=== PATIENT | male | born 1940 | race Caucasian/White ===

== ENCOUNTER 2017-11-04 08:54 | Emergency (ER) | payer MEDICARE, OTHER ==
[2017-11-04 09:47] VITALS: BP 137/82
--- NOTE | 2017-11-04 10:31 | ED ---
GI/ HPI - HPI Summary HPI Summary: 77 yr old male with the complaint of dysuria, frequency of urination. He has had feeling of some chills as well. The patient has had no abdominal or pelvic pain, no back pain. The patient has complaint two which is right wrist swelling. Onset of swelling over past couple of days. It is associated with symptoms consistent with his prior gout flare ups which he has had in the ankle as well as in the left wrist in the past. 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 he is being followed by his PMD in [place] for the clots and - History of Current Complaint Chief Complaint: [facility] Time Seen by Provider: 11/04/17 09:57 Stated Complaint: URINARY Pain Intensity: 6 - Allergy/Home Medications Allergies/Adverse Reactions: Allergies Allergy/AdvReac Type Severity Reaction Status Date / Time No Known Allergies Allergy Verified 11/04/17 09:41 Home Medications: Home Medications Apixaban* [Eliquis*] 5 mg PO BID 11/04/17 [History Confirmed 11/04/17] Carvedilol TAB* [Coreg TAB*] 12.5 mg PO BID 11/04/17 [History Confirmed 11/04/17 ] Gemfibrozil TAB* [Lopid TAB*] 600 mg PO BID 11/04/17 [History Confirmed ] Hydroxychloroquine TAB* [Plaquenil TAB*] 200 mg PO BID 11/04/17 [History Confirmed 11/04/17] Losartan TAB* [Cozaar TAB*] 50 mg PO BID 11/04/17 [History Confirmed 11/04/17] Naproxen Sodium [Aleve] 220 mg PO BID 11/04/17 [History Confirmed 11/04/17] Tamsulosin CAP* [Flomax CAP*] 0.4 mg PO DAILY 11/04/17 [History Confirmed ] amLODIPine TAB* [Norvasc 5 mg TAB*] 2.5 mg PO DAILY 11/04/17 [History Confirmed 11/04/17] metFORMIN* [Glucophage 1000 MG TAB *] 1,000 mg PO 0800,1700 11/04/17 [History Confirmed 11/04/17] predniSONE TAB* [Deltasone TAB*] 5 mg PO DAILY 11/04/17 [History Confirmed 11/04] PMH/Surg Hx/FS Hx/Imm Hx Endocrine/Hematology History: Reports: Hx Diabetes Cardiovascular History: Reports: Hx Hypertension - Surgical History Surgery Procedure, Year, and Place: L knee replacement x2. R knee replacement. Tumor removal Infectious Disease History: No Infectious Disease History: Reports: Traveled Outside the [place] in Last 30 Days - [place] - Family History Known Family History: Positive: None - Social History Occupation: Works From/At Home Alcohol Use: None Substance Use Type: Reports: None Smoking Status (MU): Never Smoked Tobacco Review of Systems Positive: Chills Positive: dysuria Positive: Other - right wrist swelling All Other Systems Reviewed And Are Negative: Yes Physical Exam Triage Information Reviewed: Yes Vital Signs On Initial Exam: Initial Vitals Temp Pulse Resp BP Pulse Ox 97.3 F 93 17 137/82 98 11/04/17 09:30 11/04/17 09:30 11/04/17 09:30 11/04/17 09:30 11/04/17 09:30 Vital Signs Reviewed: Yes Appearance: Positive: Well-Appearing, No Pain Distress Skin: Positive: Warm, Skin Color Reflects Adequate Perfusion Head/Face: Positive: Normal Head/Face Inspection Eyes: Positive: EOMI ENT: Positive: Normal ENT inspection Neck: Positive: Supple Respiratory/Lung Sounds: Positive: Clear to Auscultation, Breath Sounds Present Cardiovascular: Positive: RRR. Negative: Murmur Abdomen Description: Positive: Nontender Musculoskeletal: Positive: Other - minor STS right wrist with some tenderness, no erythema. Mild increased warmth. Neuro vasc intact. No cellulitis. Neurological: Positive: Sensory/Motor Intact, Alert, Oriented to Person Place, Time, CN Intact II-III Psychiatric: Positive: Normal - Ovando Coma Scale Best Eye Response: 4 - Spontaneous Best Motor Response: 6 - Obeys Commands Best Verbal Response: 5 - Oriented Coma Scale Total: 15 Diagnostics - Vital Signs Vital Signs Temp Pulse Resp BP Pulse Ox 11/04/17 09:30 97.3 F 93 17 137/82 98 - Laboratory Lab Results: Lab Results 11/04/17 Range/Units 10:04 POC Urine Color Brown POC Urine Clarity Cloudy POC Urine pH 5.5 (5-9) POC Ur Specif [place] 1.025 (1.010-1.030) POC Urine Protein 3+ A (Negative) POC Ur Glucose (UA) Negative (Negative) POC Urine Ketones Trace A (Negative) POC Urine Blood 2+ A (Negative) POC Urine Nitrite Positive A (Negative) POC Urine Bilirubin 1+ A (Negative) POC Urine Urobilinogen 1.0 (Negative) POC U Leukocyte Esteras 2+ A (Negative) Lab Statement: Any lab studies that have been ordered have been reviewed, and results considered in the medical decision making process. GIGU Course/Dx - Course Course Of Treatment: 77 yr old with UTI and also gout flare. Keflex and also colchine script. - Diagnoses Provider Diagnoses: Gout, UTI (urinary tract infection) Discharge - Sign-Out/Discharge Documenting (check all that apply): Patient Departure - Discharge Plan Condition: Good Disposition: HOME Prescriptions: Cephalexin CAP* [Keflex CAP*] 500 mg PO TID #30 cap Colchicine* [Colcrys*] 0.6 mg PO BID #10 tab Patient Education Materials: Urinary Tract Infection in Men (ED), Gout (ED), Hypertension (ED) Referrals: No Primary Care Phys,NOPCP [Primary Care Provider] - [facility] [place] [facility] [place] - Billing Disposition and Condition Condition: GOOD Disposition: Home
--- NOTE | 2017-11-06 07:42 | UC ---
- Progress Note Progress Note: + E. Coli On Keflex await sensitivity Lissette 11/06/17 Course/Dx - Diagnoses Provider Diagnoses: Gout, UTI (urinary tract infection) Discharge - Sign-Out/Discharge Documenting (check all that apply): Post-Discharge Follow Up - Discharge Plan Condition: Good Disposition: HOME Prescriptions: Cephalexin CAP* [Keflex CAP*] 500 mg PO TID #30 cap Colchicine* [Colcrys*] 0.6 mg PO BID #10 tab Patient Education Materials: Urinary Tract Infection in Men (ED), Gout (ED), Hypertension (ED) Referrals: [facility] [place] [facility] [Outside] No Primary Care Phys,NOPCP [Primary Care Provider] - - Billing Disposition and Condition Condition: GOOD Disposition: Home
--- NOTE | 2017-11-06 16:23 | UC ---
- Progress Note Progress Note: + E coli sensitive t cephasporin on keflex ljj 11/06/17 Course/Dx - Diagnoses Provider Diagnoses: Gout, UTI (urinary tract infection) Discharge - Sign-Out/Discharge Documenting (check all that apply): Post-Discharge Follow Up - Discharge Plan Condition: Good Disposition: HOME Prescriptions: Cephalexin CAP* [Keflex CAP*] 500 mg PO TID #30 cap Colchicine* [Colcrys*] 0.6 mg PO BID #10 tab Patient Education Materials: Urinary Tract Infection in Men (ED), Gout (ED), Hypertension (ED) [place]errals: [facility] [place] [facility] [place]] No Primary Care Phys,NOPCP [Primary Care Provider] - - Billing Disposition and Condition Condition: GOOD Disposition: Home
== END 2017-11-04 10:42 | disposition home or self-care (01) ==
LOC: UCCORT 08:54
DX: N39.0 Urinary tract infection, site not specified (principal); B96.20 Unspecified Escherichia coli [E. coli] as the cause of diseases classified elsewhere; E11.9 Type 2 diabetes mellitus without complications; Z79.84 Long term (current) use of oral hypoglycemic drugs; I10 Essential (primary) hypertension
CPT/HCPCS: 81003; 87077; 87086; 87186; 99202; G0463